=== PATIENT | female | born 1975 | race Caucasian/White ===

== ENCOUNTER 2017-04-12 20:12 | Emergency (ER) | payer OTHER ==
[2017-04-12 20:33] VITALS: TEMP 98.5; BMI 49.6
--- NOTE | 2017-04-12 20:51 | PDOC ---
[id number] 97 04/12/17 20:29 04/12/17 20:29 04/12/17 20:29 04/12/17 20:29 04/12/17 20:29 Medical Decision Making - Medical Decision Making 04/12/17 20:51 Pt seen by the Advanced Practice Provider under my direct supervision Ancillary studies reviewed I agree with plan as outlined by the Advanced Practice Provider AARTI Arriaga *DC/Admit/Observation/Transfer Diagnosis at time of Disposition: Cutaneous abscess of head excluding face - Discharge Dispostion Disposition: HOME - Referrals Referrals: Sin Jacques MD [Staff Physician] - Darion Marcial [Primary Care Provider] - - Patient Instructions Printed Discharge Instructions: DI for Skin Abscess
--- NOTE | 2017-04-12 21:12 | PDOC ---
History of Present Illness - General Chief Complaint: Wound Stated Complaint: BOTH EYES SWOLLEN/POSS ALLERGIC REACTION Time Seen by Provider: 04/12/17 20:36 History Source: Patient Exam Limitations: No Limitations - History of Present Illness Initial Comments: 04/12/17 21:07 41-year-old female presents to the emergency department complaining of an abscess to the top of her head proximal to the hairline 3 days without fever, chills, nausea/vomiting, facial pain, lymphangitis, drainage. Timing/Duration: 24 hours Past History - Past Medical History Allergies/Adverse Reactions: Allergies Allergy/AdvReac Type Severity Reaction Status Date / Time shellfish derived Allergy Severe Difficulty Verified 04/12/17 20:33 Breathing Home Medications: Ambulatory Orders Cephalexin Monohydrate [Keflex -] 500 mg PO Q8H #21 capsule 01/04/16 Clindamycin [Cleocin -] 300 mg PO TID #21 capsule 04/12/17 Asthma: No Cancer: No Cardiac Disorders: No Diabetes: No HTN: No Seizures: No Thyroid Disease: No - Immunization History Td Vaccination: No Immunization Up to Date: Yes - Psycho/Social/Smoking Cessation Hx Anxiety: No Suicidal Ideation: No Smoking Status: Yes Smoking History: Current every day smoker Have you smoked in the past 12 months: Yes Number of Cigarettes Smoked Daily: 10 If you are a former smoker, when did you quit?: 03/2012 Cigars Per Day: 0 Information on smoking cessation initiated: No Hx Alcohol Use: No Drug/Substance Use Hx: No Substance Use Type: None Hx Substance Use Treatment: No Review of Systems - Review of Systems Able to Perform ROS?: Yes Comments:: 04/12/17 21:08 CONSTITUTIONAL: Absent: fever, chills, diaphoresis, generalized weakness, malaise, loss of appetite HEENT: "top of head boil" Absent: rhinorrhea, nasal congestion, throat pain, throat swelling, difficulty swallowing, mouth swelling, ear pain, eye pain, visual Changes CARDIOVASCULAR: Absent: chest pain, loss of consciousness, palpitations, irregular heart rate, peripheral edema RESPIRATORY: Absent: cough, shortness of breath, dyspnea with exertion, orthopnea, wheezing, stridor, hemoptysis GASTROINTESTINAL: Absent: abdominal pain, abdominal distension, nausea, vomiting, diarrhea, constipation, melena, hematochezia GENITOURINARY: Absent: dysuria, frequency, urgency, hesitancy, hematuria, flank pain, genital pain Is the patient limited Indonesian proficient: No *Physical Exam - Vital Signs Last Vital Signs Temp Pulse Resp BP Pulse Ox 98.5 F 97 H 18 207/126 97 04/12/17 20:29 04/12/17 20:29 04/12/17 20:29 04/12/17 20:29 04/12/17 20:29 - Physical Exam Comments: 04/12/17 21:09 CONSTITUTIONAL: Absent: fever, chills, diaphoresis, generalized weakness, malaise, loss of appetite HEENT: 3cm abscess to top of head/ just prox to mid frontal forehead; slight erythema without drainage/lymphangitis Absent: rhinorrhea, nasal congestion, throat pain, throat swelling, difficulty swallowing, mouth swelling, ear pain, eye pain, visual Changes CARDIOVASCULAR: Absent: chest pain, loss of consciousness, palpitations, irregular heart rate, peripheral edema RESPIRATORY: Absent: cough, shortness of breath, dyspnea with exertion, orthopnea, wheezing, stridor, hemoptysis ENDOCRINE: Absent: unexplained weight gain, unexplained weight loss, heat intolerance, cold intolerance NEUROLOGIC: Absent: headache, focal weakness or paresthesias, dizziness, unsteady gait, seizure, mental status changes, bladder or bowel incontinence PSYCHIATRIC: Absent: anxiety, depression, suicidal or homicidal ideation, hallucinations. *DC/Admit/Observation/Transfer Diagnosis at time of Disposition: Cutaneous abscess of head excluding face - Prescriptions Prescriptions: Clindamycin [Cleocin -] 300 mg PO TID #21 capsule - Referrals Referrals: Darion Marcial [Primary Care Provider] - Sin Jacques MD [Staff Physician] - - Patient Instructions Printed Discharge Instructions: DI for Skin Abscess Progress Note - Progress Note Progress Note: Procedure: Mid frontal forehead region just prox to hairline 3cm abscess without drainage/lyphangitis Betadine prep 1% lidocaine=3cc I&D with #11 blade Culture obtained NS irrigation Iodoform packing
[2017-04-12] MEDS ORDERED: CLINDAMYCIN HCL 300 MG CAPSULE PO ONE (21:43)
[2017-04-12] MEDS ORDERED: CLINDAMYCIN HCL 150 MG CAPSULE (FP) ONE (21:49)
[2017-04-12] MEDS ORDERED: LIDOCAINE HCL/PF 1% SDV 5ML VIAL ONE (21:50)
[2017-04-12] MEDS ORDERED: CLINDAMYCIN HCL 150 MG CAPSULE (FP) PO ONE (22:00)
[2017-04-12 23:05] VITALS: BP 195/92; PULSE 92
== END 2017-04-12 23:05 | disposition home or self-care (01) ==
LOC: SUPCPDRO 20:12 → JER 20:12
PROC: 0H90XZZ Drainage of Scalp Skin, External Approach (ICD-10-PCS; principal; 2017-04-12)
DX: L02.811 Cutaneous abscess of head [any part, except face] (principal)
CPT/HCPCS: 10060; 87070; 87186; 87205; 99284-25

== ENCOUNTER 2017-04-15 12:58 | Emergency (ER) | payer OTHER ==
[2017-04-15 13:10] VITALS: BP 143/90; PULSE 98; TEMP 98.4; BMI 44.2
--- NOTE | 2017-04-15 13:31 | PDOC ---
History of Present Illness - General Chief Complaint: Revisit,Wound Recheck Stated Complaint: REVISIT, FOLLOW UP Time Seen by Provider: 04/15/17 13:29 - History of Present Illness Initial Comments: 04/15/17 16:14 Pt. is a 41 y/o female who presents to the ED for a wound check. She was seen on 04/12/17 for an I&D of her central scalp approximately 3 cm superior from her forehead. Pt. reported mild drainage the first day and then it stopped. Denies pain, fevers, chills, or purulent drainage from the area. Presents for packing removal. Past History - Past Medical History Allergies/Adverse Reactions: Allergies Allergy/AdvReac Type Severity Reaction Status Date / Time shellfish derived Allergy Severe Difficulty Verified 04/15/17 13:10 Breathing Asthma: No Cancer: No Cardiac Disorders: No Diabetes: No HTN: No Seizures: No Thyroid Disease: No - Immunization History Td Vaccination: No Immunization Up to Date: Yes - Psycho/Social/Smoking Cessation Hx Anxiety: No Suicidal Ideation: No Smoking Status: Yes Smoking History: Current every day smoker Have you smoked in the past 12 months: Yes Number of Cigarettes Smoked Daily: 10 If you are a former smoker, when did you quit?: 03/2012 Cigars Per Day: 0 Information on smoking cessation initiated: No Hx Alcohol Use: No Drug/Substance Use Hx: No Substance Use Type: None Hx Substance Use Treatment: No *Physical Exam - Vital Signs Last Vital Signs Temp Pulse Resp BP Pulse Ox 98.4 F 98 H 18 143/90 99 04/15/17 13:07 04/15/17 13:07 04/15/17 13:07 04/15/17 13:07 04/15/17 13:07 - Physical Exam Comments: 04/15/17 16:26 1 inch circular scab present over area of I&D. Hydrogen peroxide was used to dissolve the scab. The packing was found and removed with out incident. The wound is pink, clean, and approximates well. There is no drainage from the incision. Will not need to repack at this time There is no sign of infection. Bacitracin and bandaid placed over the incision. General Appearance: Yes: Nourished, Appropriately Dressed. 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 is a 41-year-old female with a history of scalp cysts who presents to the ED today for a wound check of an I&D done on her scalp on 04/13/17. The packing was removed without incidence. The wound is clean approximates well, and pink. There is no drainage from the area and does not need further packing at this time. Wound is healing well. We will discharge home at this time with instructions to keep the wound clean and dry. Patient has follow-up with Dr. Jacques, general surgery. Advised her to keep this follow-up. Patient understands discharge instructions and all questions were answered at this time. *DC/Admit/Observation/Transfer Diagnosis at time of Disposition: Cutaneous abscess of head excluding face, Abscess packing removal - Discharge Dispostion Disposition: HOME Condition at time of disposition: Improved Admit: No - Referrals Referrals: Sin Jacques MD [Staff Physician] - - Patient Instructions Additional Instructions: Your packing was removed from your abscess today. The wound looks clean and healthy. Keep the area covered with bacitracin and a bandaid. Do not get the area wet. Wear a shower cap while bathing to prevent water from getting at the area. Be mindful of the area when washing your hair. You may use Tylenol or Motrin for pain. Finish taking your antibiotics that were prescribed to you on . Follow up with Dr. Jacques as discussed. Return to the ED if the area shows signs of infection including redness or swelling of the area, increased prulent discharge, or you experience fevers of chills.
== END 2017-04-15 14:34 | disposition home or self-care (01) ==
LOC: JERFT 12:58
DX: Z48.01 Encounter for change or removal of surgical wound dressing (principal)
CPT/HCPCS: 99281-25